=== PATIENT | female | born 1965 | race Caucasian/White ===

== ENCOUNTER → 2016-09-18 | Outpatient (CLI) | payer MEDICAID ==
[~2016-09-18] MED LIST: ABILIFY2 MG; ACETAMINOPHEN &1 TA1 PO; ALPRAZOLAM0.25 MG PO; ASPIRIN 81MG TA81 MG PO; AUGMENTIN 875 M1 TAB PO; AURALGAN OT10 ML/BOT OT; BENAZEPRIL HCL-1 TA3 PO; BENAZEPRIL HCL/1 TAB PO; BP PILL OR; CIPRO HC 0.2%-110 ML OT; CLONAZEPAM 1MG T1 MG PO; DICLOFENAC SODI75 M2 PO; EC NAPROSYN500 MG PO; GABAPENTIN 400400 M1 GT; GABAPENTIN300 MG PO; INDOMETHACIN50 MG PO; KEFLEX 500MG.500 MG PO; LASIX40 MG PO; LODINE400 MG PO; LORTAB 5/500 501 TAB PO; MUSCLE RELAXER OR; PERCOCET 10 MG1 EACH PO; PERCOCET 5/3251 EACH PO; PHENERGAN 25MG.25 MG PR; TRAMADOL 50MG T50 MG PO; ULTRAM50 MG PO; VOLTAREN75 MG PO; XANAX 1MG TABLET1 MG PO; ZOFRAN4 MG PO
[2016-09-18 16:00] LABS: AMPHETAMINES/METAMPHETAMINES NEGATIVE ng/mL (<1000)
== END ==
LOC: LAB 13:52
PROVIDERS: Nurse Practitioner Family
DX: Z79.899 Other long term (current) drug therapy (principal)

== ENCOUNTER → 2016-11-20 | Outpatient (CLI) | payer MEDICAID ==
[2016-11-20 11:51] LABS: AMPHETAMINES/METAMPHETAMINES NEGATIVE ng/mL (<1000)
[2016-11-23 18:39] LABS: Opiates Negative (Cutoff=100)
== END ==
LOC: LAB 11:28
PROVIDERS: Anesthesiology
DX: Z79.899 Other long term (current) drug therapy (principal)

== ENCOUNTER 2017-05-20 10:54 | Emergency (ER) | payer MEDICAID ==
[~2017-05-20] VITALS: Ht 167.6 cm; Wt 72.6 kg
--- OUTSIDE RECORDS SUMMARY | 2017-05-20 11:34 | External Medical Summary Rpt | CCD ---
Author Author , TARUN MCNEIL Address Unknown Phone [email or web address] Care Team Providers Care Mower Mechanic Name Role Phone Koko Fisher MD, Unavailable Unavailable Koko Fisher MD Purpose Continuity of Care Document - 12-17-2012 through 2016 Problems Code Diagnosis DOS Provider Status 305.1 305.1 01-12-2013 [place] TOBACCO USE [facility] 401.9 401.9 01-12-2013 [place] HYPERTENSIO [facility] 413.9 413.9 01-12-2013 [place] ANGINA [facility] PECTORIS [facility] NEC/NOS 511.0 511.0 01-12-2013 [place] PLEURISY [facility] W/O EFFUS [facility] OR TB 786.50 786.50 01-12-2013 [place] CHEST PAIN [facility] Allergies, Adverse Reactions, Alerts Type Drug Allergy Adverse Reaction to Substance Substance Reaction Severity Acetaminophen I-ITCHING Unknown Medications Na ND Rx Da Fi Fi Am Da Di Ph RX Ph St me C No te ll ll ou ys ag ar # ys at rm s nt no ma ic us Or Da si cy ia de te s n re d GI 12 07 0 No 32 -2 CO 22 2- Lo CK 22 20 ng TA 22 13 er IL 2 Ac 60 ti ML ve UD C KE 00 07 0 No TO 40 -0 RO 93 9- Lo LA 79 20 ng C 50 13 er 30 1 Ac MG ti /M ve L AL Sa 63 07 0 No li 80 -0 ne 70 9- Lo 10 20 ng Fl 07 13 er us 5 h Ac 10 ti ML ve Sy ri ng e KE 00 06 0 No TO 40 -1 RO 93 3- Lo LA 79 20 ng C 50 13 er 30 1 Ac MG ti /M ve L AL Vital Signs 01-25-2013 15:35 Name Value Interpretat Reference Comment ion Range Body 97.8 [degF] Temperature BP 88 mm[Hg] Diastolic BP Systolic 151 mm[Hg] Heart 75 /min Rate/Pulse O2% 100 % Respiratory 17 /min Rate 01-25-2013 14:42 Name Value Interpretat Reference Comment ion Range Body 98 [degF] Temperature 01-25-2013 12:40 Name Value Interpretat Reference Comment ion Range BP 85 mm[Hg] Diastolic BP Systolic 164 mm[Hg] Heart 89 /min Rate/Pulse O2% 98 % Respiratory 20 /min Rate 01-12-2013 16:12 Name Value Interpretat Reference Comment ion Range BP 68 mm[Hg] Diastolic BP Systolic 130 mm[Hg] Heart 66 /min Rate/Pulse O2% 94 % Respiratory 20 /min Rate 01-12-2013 16:08 Name Value Interpretat Reference Comment ion Range Body 98.0 [degF] Temperature 01-12-2013 15:16 Name Value Interpretat Reference Comment ion Range BP 104 mm[Hg] Diastolic BP Systolic 151 mm[Hg] Heart 89 /min Rate/Pulse O2% 96 % Respiratory 20 /min Rate 12-17-2012 22:57 Name Value Interpretat Reference Comment ion Range BP 93 mm[Hg] Diastolic BP Systolic 143 mm[Hg] Heart 88 /min Rate/Pulse O2% 97 % Respiratory 20 /min Rate 12-17-2012 21:42 Name Value Interpretat Reference Comment ion Range BP 69 mm[Hg] Diastolic BP Systolic 116 mm[Hg] Heart 88 /min Rate/Pulse O2% 97 % Respiratory 20 /min Rate Results Labs Lab Lab Date Result Refere Interp Status Commen Order Detail nces retati t Range on BASIC METABOLIC PANEL (01-25-2013 12:25) Glucose 100 74-106 complet 013 mg/dL ed Bld-mCn 12:25 c BUN 11 7-18 complet Bld-mCn 013 mg/dL ed c 12:25 Creat 0.9 0.6-1.0 complet SerPl-m 013 mg/dL ed Cnc 12:25 GFR 67 59- complet (ESTIMA 013 ML/MIN ed DEEPTHI) 12:25 Sodium 142 136-145 complet SerPl-s 013 mmoL/L ed Cnc 12:25 Potassi 3.7 3.5-5.1 complet um 013 mmoL/L ed SerPl-s 12:25 Cnc Chlorid 104 98-107 complet e 013 mmoL/L ed SerPl-s 12:25 Cnc CO2 30 21.0-32 complet SerPl-s 013 mmoL/L .0 ed Cnc 12:25 Calcium 8.6 8.5-10. complet 013 mg/dL 1 ed SerPl-m 12:25 Cnc COMPREHENSIVE METABOLIC PANEL (01-25-2013 12:25) Prot 01-25-2 7.3 6.4-8.2 complet SerPl-m 013 gm/dL ed Cnc 12:25 Albumin 01-25-2 3.9 3.4-5.0 complet 013 gm/dL ed SerPl-m 12:25 Cnc Globuli 3.4 1.3-3.2 complet n 013 gm/dL ed Ser-mCn 12:25 c Albumin 1.1 UNK 1.1-1.8 complet /Glob 013 ed SerPl-m 12:25 Rto Bilirub 0.4 0.2-1.0 complet 013 mg/dL ed SerPl-m 12:25 Cnc AST 41 U/L 15-37 complet SerPl-c 013 ed Cnc 12:25 ALT 64 U/L 30-65 complet SerPl-c 013 ed Cnc 12:25 ALP 163 U/L 50-136 complet SerPl-c 013 ed Cnc 12:25 CBC with AUTO DIFF (01-25-2013 12:25) WBC # 01-25-2 7.0 4.8-10. complet Bld 013 K/MM3 8 ed Auto 12:25 RBC # 01-25-2 4.44 4.2-5.4 complet Bld 013 M/mm3 ed Auto 12:25 Hgb 2 13.3 12.2-16 complet Bld-mCn 013 g/dL .2 ed c 12:25 Hct Fr 40.1 % 37.0-47 complet Bld 013 .0 ed 12:25 MCV RBC 90.3 fl 82.2-97 complet 013 .8 ed 12:25 MCH RBC 29.8 pg 27-31.2 complet Qn 013 ed Auto 12:25 MEAN 07-22-2 33.1 31.8-35 complet CORPUSC 013 g/dl .4 ed ULAR 12:25 HGB CONC RDW RBC -22-2 13.7 % 11.5-17 complet Auto 013 .5 ed 12:25 Platele 07-22-2 245 142-424 complet t Bld 013 K/mm3 ed Ql 12:25 Manual MEAN 22-2 8.2 fl 7.4-10. complet PLATELE 013 4 ed T 12:25 VOLUME Granulo -22-2 69.7 % 37.0-80 complet cytes 013 .0 ed Fr Bld 12:25 Auto LYMPH % 07-22-2 23.8 % 10-50.0 complet 013 ed 12:25 Monocyt 07-22-2 4.8 % 1.7-9.3 complet es Fr 013 ed Bld 12:25 Auto Eosinop 07-22-2 1.4 % 0.1-12. complet hil Fr 013 0 ed Bld 12:25 Auto Basophi -22-2 0.3 % 0.1-2.0 complet ls Fr 013 ed Bld 12:25 Auto Granulo 07-22-2 4.9 1.8-7.8 complet cytes # 013 K/mm3 ed Bld 12:25 Auto Lymphoc 07-22-2 1.7 0.7-4.5 complet ytes Fr 013 K/mm3 ed Bld 12:25 Auto Monocyt 07-22-2 0.3 0.1-1.0 complet es # 013 K/mm3 ed Bld 12:25 Auto Eosinop 07-22-2 0.1 0.0-0.4 complet hil # 013 K/mm3 ed Bld 12:25 Auto Basophi 07-22-2 0.0 0-0.2 complet ls # 013 K/MM3 ed Bld 12:25 Auto BASIC METABOLIC PANEL (01-12-2013 15:05) Glucose 09-2 101 74-106 complet 013 mg/dL ed Bld-mCn 15:05 c BUN 01-12- 10 7-18 complet Bld-mCn 013 mg/dL ed c 15:05 Creat 01-12-2 0.9 0.6-1.0 complet SerPl-m 013 mg/dL ed Cnc 15:05 ESTIMAT 92 50-200 complet ED 013 ML/MIN ed CREATIN 15:05 INE CLEARAN CE GFR 67 59- complet (ESTIMA 013 ML/MIN ed DEEPTHI) 15:05 Sodium 144 136-145 complet SerPl-s 013 mmoL/L ed Cnc 15:05 Potassi 3.4 3.5-5.1 complet um 013 mmoL/L ed SerPl-s 15:05 Cnc Chlorid 107 98-107 complet e 013 mmoL/L ed SerPl-s 15:05 Cnc CO2 32 21.0-32 complet SerPl-s 013 mmoL/L .0 ed Cnc 15:05 Calcium 8.7 8.5-10. complet 013 mg/dL 1 ed SerPl-m 15:05 Cnc CBC with AUTO DIFF (01-12-2013 15:05) WBC # 01-12-2 7.6 4.8-10. complet Bld 013 K/MM3 8 ed Auto 15:05 RBC # 4.66 4.2-5.4 complet Bld 013 M/mm3 ed Auto 15:05 Hgb 13.8 12.2-16 complet Bld-mCn 013 g/dL .2 ed c 15:05 Hct Fr 41.9 % 37.0-47 complet Bld 013 .0 ed 15:05 MCV RBC 90.0 fl 82.2-97 complet 013 .8 ed 15:05 MCH RBC 29.7 pg 27-31.2 complet Qn 013 ed Auto 15:05 MEAN 33.0 31.8-35 complet CORPUSC 013 g/dl .4 ed ULAR 15:05 HGB CONC RDW RBC 13.4 % 11.5-17 complet Auto 013 .5 ed 15:05 Platele 235 142-424 complet t Bld 013 K/mm3 ed Ql 15:05 Manual MEAN 8.5 fl 7.4-10. complet PLATELE 013 4 ed T 15:05 VOLUME Granulo 63.2 % 37.0-80 complet cytes 013 .0 ed Fr Bld 15:05 Auto LYMPH % 07-09-2 30.5 % 10-50.0 complet 013 ed 15:05 Monocyt 07-09-2 3.9 % 1.7-9.3 complet es Fr 013 ed Bld 15:05 Auto Eosinop 07-09-2 2.1 % 0.1-12. complet hil Fr 013 0 ed Bld 15:05 Auto Basophi 07-09-2 0.4 % 0.1-2.0 complet ls Fr 013 ed Bld 15:05 Auto Granulo 07-09-2 4.8 1.8-7.8 complet cytes # 013 K/mm3 ed Bld 15:05 Auto Lymphoc 07-09-2 2.3 0.7-4.5 complet ytes Fr 013 K/mm3 ed Bld 15:05 Auto Monocyt 07-09-2 0.3 0.1-1.0 complet es # 013 K/mm3 ed Bld 15:05 Auto Eosinop 07-09-2 0.2 0.0-0.4 complet hil # 013 K/mm3 ed Bld 15:05 Auto Basophi 07-09-2 0.0 0-0.2 complet ls # 013 K/MM3 ed Bld 15:05 Auto BASIC METABOLIC PANEL (12-17-2012 20:53) Glucose 12-17- 103 74-106 complet 013 mg/dL ed Bld-mCn 20:53 c BUN 12-17- 30 7-18 complet Bld-mCn 013 mg/dL ed c 20:53 Creat 1.2 0.6-1.0 complet SerPl-m 013 mg/dL ed Cnc 20:53 GFR 12-17- 48 59- complet (ESTIMA 013 ML/MIN ed DEEPTHI) 20:53 Sodium 12-17- 139 136-145 complet SerPl-s 013 mmoL/L ed Cnc 20:53 Potassi 3.7 3.5-5.1 complet um 013 mmoL/L ed SerPl-s 20:53 Cnc Chlorid 102 98-107 complet e 013 mmoL/L ed SerPl-s 20:53 Cnc CO2 26 21.0-32 complet SerPl-s 013 mmoL/L .0 ed Cnc 20:53 Calcium 06-13-2 9.3 8.5-10. complet 013 mg/dL 1 ed SerPl-m 20:53 Cnc TROPONIN I (12-17-2012 20:53) TROPONI 06-13-2 Less 0.00-0. complet N I 013 than 06 ed 20:53 0.02 ng/mL CBC with AUTO DIFF (12-17-2012 20:53) WBC # 06-13-2 8.9 4.8-10. complet Bld 013 K/MM3 8 ed Auto 20:53 RBC # 06-13-2 4.37 4.2-5.4 complet Bld 013 M/mm3 ed Auto 20:53 Hgb -13-2 13.4 12.2-16 complet Bld-mCn 013 g/dL .2 ed c 20:53 Hct Fr 13-2 39.8 % 37.0-47 complet Bld 013 .0 ed 20:53 MCV RBC 13-2 90.9 fl 82.2-97 complet 013 .8 ed 20:53 MCH RBC 12-17-2 30.7 pg 27-31.2 complet Qn 013 ed Auto 20:53 MEAN -13-2 33.8 31.8-35 complet CORPUSC 013 g/dl .4 ed ULAR 20:53 HGB CONC RDW RBC 13-2 13.6 % 11.5-17 complet Auto 013 .5 ed 20:53 Platele -13-2 248 142-424 complet t Bld 013 K/mm3 ed Ql 20:53 Manual MEAN 13-2 8.5 fl 7.4-10. complet PLATELE 013 4 ed T 20:53 VOLUME Granulo -13-2 63.1 % 37.0-80 complet cytes 013 .0 ed Fr Bld 20:53 Auto LYMPH % -13-2 30.3 % 10-50.0 complet 013 ed 20:53 Monocyt -13-2 4.8 % 1.7-9.3 complet es Fr 013 ed Bld 20:53 Auto Eosinop -13-2 1.4 % 0.1-12. complet hil Fr 013 0 ed Bld 20:53 Auto Basophi -13-2 0.4 % 0.1-2.0 complet ls Fr 013 ed Bld 20:53 Auto Granulo 06-13-2 5.6 1.8-7.8 complet cytes # 013 K/mm3 ed Bld 20:53 Auto Lymphoc 12-17-2 2.7 0.7-4.5 complet ytes Fr 013 K/mm3 ed Bld 20:53 Auto Monocyt 12-17-2 0.4 0.1-1.0 complet es # 013 K/mm3 ed Bld 20:53 Auto Eosinop 12-17-2 0.1 0.0-0.4 complet hil # 013 K/mm3 ed Bld 20:53 Auto Basophi 12-17-2 0.0 0-0.2 complet ls # 013 K/MM3 ed Bld 20:53 Auto Encounters Encounter Start End Date Code Location Performer Type Date Emergency JETHRO MADRID MD (ER) 3 12:53 3 15:36 [facility] Emergency JETHRO Fisher MD (ER) 3 15:13 3 16:16 [facility] Emergency JETHRO Hoskins MD (ER) 3 21:20 3 23:03 [facility]
--- OUTSIDE RECORDS SUMMARY | 2017-05-20 11:34 | External Medical Summary Rpt | CCD ---
Author Author , TARUN MCNEIL Address Unknown Phone [email or web address] Care Team Providers Care Industrial Electrical Technician Name Role Phone Koko Fisher MD, Unavailable Unavailable Koko Fisher MD Purpose Continuity of Care Document - 12-17-2012 through 2016 Problems Code Diagnosis DOS Provider Status 305.1 305.1 01-12-2013 [place] TOBACCO USE [facility] 401.9 401.9 01-12-2013 [place] HYPERTENSIO [facility] 413.9 413.9 01-12-2013 [place] ANGINA [facility] PECTORIS [facility] NEC/NOS 511.0 511.0 01-12-2013 [place] PLEURISY [facility] W/O EFFUS [facility] OR TB 786.50 786.50 01-12-[address] [place] [address] [facility] Allergies, Adverse Reactions, Alerts Type Drug Allergy [...] MADRID MD (ER) 3 12:53 3 15:36 [facility] Emergency JETHRO Fisher MD (ER) 3 15:13 3 16:16 [facility] Emergency JETHRO Hoskins MD (ER) 3 21:20 3 23:03 [facility]
--- OUTSIDE RECORDS SUMMARY | 2017-05-20 11:35 | External Medical Summary Rpt | CCD ---
Demographics Preferred Language Serbian Marital Status Unknown Evangelical Affiliation Unknown Race Unknown Ethnic Group Unknown Author Author , TARUN MCNEIL Address Unknown Phone Immunization No patient found.
--- OUTSIDE RECORDS SUMMARY | 2017-05-20 11:35 | External Medical Summary Rpt | CCD ---
Author Author [facility] Organization [employer] Address Unknown Phone Unavailable Purpose Continuity of Care Document - through 2016
--- OUTSIDE RECORDS SUMMARY | 2017-05-20 11:35 | External Medical Summary Rpt | CCD ---
Demographics Preferred Language Belarusian Marital Status Unknown Yazidism Affiliation Unknown Race Unknown Ethnic Group Unknown Author Author , TARUN MCNEIL Address Unknown Phone Immunization No patient found.
--- NOTE | 2017-05-20 11:36 | Emergency Room Report ---
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 N Clinical Suspician of Infection? N Mental Status: 1 - Regular (Normal Baseline) Sepsis Risk:Low Sepsis Risk Have you (or family members/close friends) recently traveled outside the [place]? N If Yes, where/when: Have you had exposure to infectious disease within the past month? N TB? Other? Specify: This 51 years old white female with history of cervical disc disease and ALLERGIES to Naprosyn on ibuprofen and a formal swelling. She claims that she was standing on a ladder putting up his [employer] lights on May 20. She fell and landed on her RIGHT shoulder with resultant pain radiating down to the lower back. She was assisted by her son and brought to the ER for evaluation. She has no loss of movement on the RIGHT upper extremity. She has no numbness or tingling involving the upper extremity. Her Refills 2 seconds. She has no radiation to the lower extremities but is no loss of urine or bowel control. Source patient, RN notes reviewed, family (her son agrees) Exam Limitations clinical condition (RIGHT arm pain) ALLERGIES Coded Allergies: acetaminophen (01/03/17) Home Medications Active Scripts Oxycodone 10 Mg\[id number] (Oxycodone-Acetaminophen 10-325) 1 TAB PO QIDP PRN PAIN #120 TAB Prov: 02/12/16 Reported Medications ALPRAZOLAM (Alprazolam 0.25MG) 0.25 MG PO BID ASPIRIN (Aspirin) 81 MG PO DAILY BENAZEPRIL/HYDROCHLOROTHIAZIDE (Benazepril-Hctz 10-12.5 MG Tab) 1 TAB PO DAILY #30 History Medical History General CAD? No Angina: Yes [place]: No Hypertension? Yes Hyperlipidemia? No CHF? No DVT? No PE? No COPD? No Asthma? No Anemia? No GERD? No Gastric ulcers? No GI Bleed? No Hernia? No Thyroid Problems? No Hypothyroidism? No CVA? No Seizures? No Diabetes? No Renal Insuffiency? No End Stage Renal Disease? No UTI? No Stones? No BPH? No GB Disease: No Nephritic Syndrome? No Asplenia? No Hepatitis? No Sickle Cell Disease? No Arthritis? Yes Migraines? Yes Cataracts? No Glaucoma? No MRSA? No HIV? No TB? No Anxiety? Yes Depression? Yes Cancer? 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 Respiratory no symptoms reported Cardiovascular no symptoms reported Gastrointestinal no symptoms reported Genitourinary no symptoms reported. Musculoskeletal see HPI, back pain Skin no symptoms reported, see HPI Psychiatric/Neurological no symptoms reported Physical Exam Vital Signs Vital Signs Date Time Temp Pulse Resp B/P Pulse O2 O2 Flow FiO2 Ox Delivery Rate 05/20 1245 88 20 155/88 100 05/20 1103 97.9 88 18 142/92 100 05/20 1059 97.9 88 18 142/92 100 - WBC >12,000 or <4,000 or 10% bands? 2 or more SIRS Criteria Met? B/P:142/92 MAP:108 Creatinine >2.0? UA output<0.5ml/kg/hr for 2 hrs? Platelet count >100,000? Lactate >2.0mmol/1? INR >1.2 or PTT > than 60 sec? Evidence of Organ Dysfunction? Provider documented clinical suspician of infection? N Sepsis Criteria Count: 0 Sepsis Risk: Low Sepsis Risk General Appearance normal appearance, WD/WN Eye Exam - bilateral eye normal exam, bilateral eye PERRL, bilateral eye EOMI Ear, Nose, Throat hearing grossly normal, normal ENT inspection Neck normal inspection (no mid line spine pain), non-tender, supple, full range of motion, tenderness over the RIGHT trapezius muscle Respiratory Status Yes: trachea midline, chest symmetrical, non tender chest. No: respiratory distress. Lung Sounds bilateral: normal breath sounds, lungs clear. Cardiovascular normal exam, regular rate/rhythm, no peripheral edema, no gallop, no JVD, no murmur, no rub, normal peripheral pulses Peripheral Pulses Pulses normal Yes Gastrointestinal normal bowel sounds, normal exam, non tender, soft, no organomegaly Back normal inspection, no CVA tenderness, no vertebral tenderness, vertebral tenderness, tenderness over the lumbar spinous processes Extremities normal inspection, normal capillary refill, no calf tenderness, Limited range of motion of the RIGHT shoulder due to pain, tenderness over the RIGHT trapezius muscle, intact range of motion of the RIGHT elbow and wrist. Motor power is 5/5 on the hand. 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 No Results/Orders Current Medication Orders Sig/Dusty Start time Last Medication Dose Route Stop Time Status Admin Methocarbamol 0 .STK-MED ONE 05/20 1257 DC PO Hydrocodone Bitart/ 1 TAB ONCE ONE 05/20 1145 CANr Acetaminophen PO 05/20 1146 Methocarbamol 500 MG ONCE ONE 05/20 1145 DC 05/20 PO 05/20 1146 1258 Orders Procedure Date/time Status DIET-NOTHING BY MOUTH 05/[address] SCAN REQ 05/20 1137 Complete XRAY/CT/US XRAY/CT/US XRAY shoulder, L-spine, upper arm XR interpretation by reviewed by me Xray Results no fracture seen Comment dr keith agrees with no fractures or dislocations CT C-spine CT interpretation by discussed w/radiologist Time results known: 1303 CT Results no fracture seen Departure Departure Time of Disposition 1303 Disposition DC Home or Self Care(routine) Clinical Impression Primary Impression: Fall Secondary Impressions: Allergy to NSAIDs, Contusion of shoulder, right, DJD ( degenerative joint disease) of cervical spine, Tobacco use Condition STABLE Referrals DMITRIY PATTON (Family) Additional Instructions 1- arm sling. 2- ice 3- elevation 4- OTC painmedicine 5- follow up with pcp on final x ray reports. 6- return if needed Discharge Counseling Counseled pt/family regarding diagnosis, test results, medications/RX, home care, follow up needs ED Critical Care Critical Care No If Critical Care minutes are documented, the time involved in the performance of seperately reportable procedures was not counted toward critical care time documented. I directly delivered medical care to this critically ill and/or injured patient. Timely evaluation and treatment was necessary to address the significant organ system(s) dysfunction present in this patient. at 1304
--- NOTE | 2017-05-20 12:44 | RADIOLOGY REPORT PS360 ---
[id number] VIEWS HISTORY: Pain following injury, right shoulder pain fall from a ladder ORDERING PHYSICIAN: Alexey De La Cruz MD PATIENT AGE: 51 years COMPARISON: None FINDINGS: No fracture or dislocation. No lytic or blastic change. There is normal mineralization. Are mild osteoarthritic changes of the glenohumeral joint and acromioclavicular joint. No obvious fracture or dislocation is evident. IMPRESSION: 1. No acute fracture. 2. Osteoarthritis
--- NOTE | 2017-05-20 12:45 | RADIOLOGY REPORT PS360 ---
HUMERUS-RT HISTORY: Posttraumatic pain fall from a ladder ORDERING PHYSICIAN: Alexey De La Cruz MD PATIENT AGE: 51 years COMPARISON: None FINDINGS: No fracture or dislocation. No lytic or blastic change. There is normal mineralization. IMPRESSION: No acute finding
--- NOTE | 2017-05-20 12:48 | RADIOLOGY REPORT PS360 ---
EXAM: LUMBAR SPINE 5 VIEWS HISTORY: Posttraumatic pain fall from a ladder ORDERING PHYSICIAN: Alexey De La Cruz MD PATIENT AGE: 51 years COMPARISON: None FINDINGS: Moderate lumbar scoliosis convex left measuring 19 degrees involving the upper lumbar spine. No obvious fracture or dislocation is evident. No lytic or blastic change. On the lateral view there is a lucency through the spinous process of T10 posteriorly. This however was present on the older chest radiograph and cyst with a chronic finding. There is multilevel degenerative disc disease with facet arthritic change. No acute fracture or dislocation is evident. IMPRESSION: 1. No acute fracture. 2. Scoliosis with lumbar spondylosis
--- NOTE | 2017-05-20 13:00 | RADIOLOGY REPORT PS360 ---
CT CERVICAL SPINE W/O CONT INDICATION: Right-sided neck pain following injury FELL FROM LADDER,RT SIDE NECK PAIN ORDERING PHYSICIAN: Alexey De La Cruz MD PATIENT AGE: 51 years COMPARISON: None TECHNIQUE: Axial images are obtained without contrast. Sagittal and coronal reformatted images are reviewed as well. FINDINGS: There is normal alignment. No obvious fracture or dislocation is evident. There is degenerative disc disease at C5-C6 with uncovertebral hypertrophy/right and left disc osteophyte complex at the uncovertebral region causing moderate right-sided foraminal narrowing. C6-C7: Degenerative disc disease with endplate hypertrophic change. There is some subcortical cystic change along the superior endplate of C7. Mild right foraminal narrowing is present at C5-C6 and C6-C7. Lung apices are clear. IMPRESSION: 1. No acute fracture. 2. Cervical spondylosis
[2017-05-20 13:16] VITALS: BP 155/88
== END 2017-05-20 13:16 | disposition home or self-care (01) ==
LOC: ER 10:54
DX: S40.011A Contusion of right shoulder, initial encounter (principal); I10 Essential (primary) hypertension; W11.XXXA Fall on and from ladder, initial encounter; Y93.89 Activity, other specified; Y92.009 Unspecified place in unspecified non-institutional (private) residence as the place of occurrence of the external cause; M47.892 Other spondylosis, cervical region; F17.210 Nicotine dependence, cigarettes, uncomplicated; Z85.42 Personal history of malignant neoplasm of other parts of uterus; Z85.89 Personal history of malignant neoplasm of other organs and systems; Z79.82 Long term (current) use of aspirin; Z79.899 Other long term (current) drug therapy